=== PATIENT | female | born 1985 | race Caucasian/White ===

== ENCOUNTER 2019-12-11 11:26 | Observation (INO) | payer OTHER ==
[2019-12-11 12:26] VITALS: O2SAT 95
[2019-12-11 12:57] LABS: BASOPHIL % 0.2 % (0.0-0.4); Basophil (Absolute #) 0.02 (0-0.4); Eosinophil % 2.5 % (0.00-5.0); Eosinophil (Absolute #) 0.24 (0-0.5); Hematocrit 36.1 % (35-47); Hemoglobin 11.7 gm/dl (12.0-16.0); Lymphocyte (Absolute #) 2.27 (1.0-4.6); Lymphocytes % 23.6 % (24.0-44.0); Mean Corpuscular Hemoglobin 31.1 pg (26-32); Mean Corpuscular Hgb Concent. 32.4 g/dl (32-36); Mean Platelet Volume 9.4 fl (7.5-11.0); Monocytes % 8.3 % (0.0-12.0); Neutrophil % 65.4 % (36.0-66.0); Platelet Count 235 K/mm3 (150-450); Red Blood Count 3.76 M/mm3 (4.1-5.4); Red Cell Distribution Width 13.5 % (11.5-14.0); White Blood Count 9.6 K/mm3 (4.0-10.5)
[2019-12-11 13:07] LABS: ALBUMIN 3.6 g/dL (3.5-5.0); ALKALINE PHOSPHATASE 49 U/L (38-126); ANION GAP 6.8 MEQ/L (5-15); BLOOD UREA NITROGEN 6 mg/dL (7-17); CHLORIDE 107 mmol/L (98-107); Calcium 8.9 mg/dL (8.4-10.2); Carbon Dioxide 25 mmol/L (22-30); Creatinine 1 0.32 mg/dL (0.52-1.04); Glucose 88 mg/dL (74-106); Potassium 3.8 mmol/L (3.5-5.1); SGOT/AST 76 U/L (14-36); SGPT/ALT 100 U/L (0-35); SODIUM 135 mmol/L (137-145); Total Protein 7.1 g/dL (6.3-8.2)
[2019-12-11 14:12] LABS: Amphetamine,Urine NEGATIVE (NEGATIVE); Barbiturate,Urine NEGATIVE (NEGATIVE); Benzodiazepine,Urine NEGATIVE (NEGATIVE); Cocaine,Urine NEGATIVE (NEGATIVE); Methadone,Urine NEGATIVE (NEGATIVE); Opiate,Urine NEGATIVE (NEGATIVE); PCP,Urine NEGATIVE (NEGATIVE); THC,Urine POSITIVE (NEGATIVE)
--- NOTE | 2019-12-11 14:20 | XRAY ---
Indication: Right upper quadrant pain with . Two-dimensional abdominal sonogram performed. Comparison: None Visualized portions of the liver, pancreas, and spleen appear homogeneous in echogenicity. No organomegaly. Gallbladder is moderately distended without gallstones, wall thickening, or pericholecystic fluid. Common bile duct measures 3.9 mm. No intrahepatic biliary distention. Visualized aorta and IVC are normal in course and caliber. Both kidneys are normal in reniform shape with normal color perfusion. Right kidney measures 11.5 x 4.6 x 4.9 cm and the left measures 11.4 x 5.5 x 5.0 cm. No suspicious solid/cystic renal mass or hydronephrosis. Impression: Distended gallbladder without cholelithiasis, cholecystitis, or biliary distention. Remaining abdominal sonogram is negative.
[2019-12-11 14:21] LABS: Appearance CLEAR (CLEAR); Bacteria RARE /HPF (NEGATIVE); Bilirubin NEGATIVE (NEGATIVE); Blood NEGATIVE Ery/ul (0-5); Epithelial Cells RARE /HPF (FEW); Glucose NEGATIVE (NEGATIVE); Ketones NEGATIVE (NEGATIVE); Leukocyte Esterase NEGATIVE (NEGATIVE); Nitrite NEGATIVE (NEGATIVE); Protein,Urine Dip NEGATIVE (Negative); Specific Gravity 1.003 (1.005-1.025); Urobilinogen NEGATIVE mg/dL (0-1)
[2019-12-11 14:42] VITALS: BP 109/61
== END 2019-12-11 15:35 | disposition home or self-care (01) ==
LOC: OB 11:26
PROVIDERS: ADMIT Obstetrics & Gynecology; ATTEND Obstetrics & Gynecology
DX: Z34.82 Encounter for supervision of other normal pregnancy, second trimester (principal)
CPT/HCPCS: 36415; 76700; 80053; 80307; 81001; 85025; 86803; G0378